=== PATIENT | female | born 1965 | race Caucasian/White ===

== ENCOUNTER → 2017-04-18 09:14 | Outpatient (CLI) | payer BC, SELFPAY ==
--- NOTE | 2017-04-18 09:17 | MM_ITS ---
MM Dig screening mamm BI w/CAD CAD Screening ORDERING PHYSICIAN : Ladan Willett PATIENT AGE: 51 years GENDER: Female COMPARISON: Previous mammograms: June 2014 & film screen mammogram July 2008. INDICATION: Routine screening. No new complaints. Family history. Noncontributory. TECHNIQUE: Standard CC and MLO images were obtained. R2 CAD reviewed. FINDINGS: Low-density breast bilaterally with generalized fatty replacement We again see the stable tiny nodular densities towards the lateral right and left breast. Most likely these reflect small stable intramammary lymph nodes and aren't not of concern. Follow-up in one year would be adequate and recommended. No architectural distortion. No suspicious calcifications. IMPRESSION: Stable bilateral mammogram with no new areas of significant concern. Follow-up in one year recommended BI-RADS Category: 1 Negative RECOMMENDED FOLLOW-UP: 1YR - 1 YEAR FOLLOW-UP (A letter has been sent to the patient regarding results of the study.) Screening
== END ==
PROVIDERS: PCP Nurse Practitioner Family; Visit Provider Nurse Practitioner Family
DX: Z12.39 Encounter for other screening for malignant neoplasm of breast (principal)
CPT/HCPCS: 77067

== ENCOUNTER → 2017-06-17 13:03 | Outpatient (POV) | payer BC, SELFPAY | PROVIDERS: PCP Nurse Practitioner Family; Visit Provider Nurse Practitioner Acute Care | DX: Z00.00 Encounter for general adult medical examination without abnormal findings (principal) ==

== ENCOUNTER → 2017-06-25 10:35 | Outpatient (CLI) | payer BC, SELFPAY ==
--- NOTE | 2017-06-25 10:39 | NM_ITS ---
NM hepatobiliary wo pharm HISTORY: Pancreatitis, right upper quadrant pain ITS.REASON: PANCREATITIS, RUQ AIN ORDERING PHYSICIAN: Venecia Sanchez PATIENT AGE: 52 years DOSE: 8.23 mCi Tc Choletec Fatty meal: Ensure Moderate pain was reported with fatty meal FINDINGS: Homogeneous activity is present within the hepatic parenchyma. Activity is present in the gallbladder by 10 minutes. Activity is present in the small bowel by 10 minutes. The gallbladder ejection fraction is calculated to be 78% Patient did report pain with the fatty meal IMPRESSION: Unremarkable hepatobiliary scan and gallbladder ejection fraction. No evidence of common or cystic duct obstruction with normal gallbladder ejection fraction
--- NOTE | 2017-06-25 10:52 | HMH.ITSHM ---
GLIPIZIDE METFORMIN METOPROLOL LIPITOR LISINOPRIL
== END ==
PROVIDERS: PCP Nurse Practitioner Family; Visit Provider Nurse Practitioner Acute Care
DX: K85.90 Acute pancreatitis without necrosis or infection, unspecified (principal)
CPT/HCPCS: 78226; A9537

== ENCOUNTER → 2017-12-27 12:48 | Outpatient (CLI) | payer BC, SELFPAY ==
--- NOTE | 2017-12-27 12:57 | MM_ITS ---
MM Dig mamm BI DX w/CAD, US breast RT complete, US breast LT complete INDICATION: Bilateral palpable abnormalities ORDERING PHYSICIAN: Laine Jung PATIENT AGE: 52 years COMPARISON: 04/18/2017, 07/08/2014 TECHNIQUE: Standard images performed along with problem-solving views and bilateral breast ultrasound FINDINGS: Right breast: Multiple benign-appearing nodular densities. No malignant appearing mass or malignant. Microcalcification. There are 2 benign-appearing nodules deep to the placed marker laterally one measuring 6 and one measuring 4 mm. These are nonsignificant changed. On the MLO spot compression view there is an asymmetric density in the upper aspect of the right breast millimeters. An additional marker is placed along the medial aspect of the right breast for which there are no mammographic abnormalities apparent Right breast ultrasound: 4 mm hypoechoic nodule at 11:00 5 mm hypoechoic nodule at 10:00, small lymph node at 10:00. At 6 x 3 mm. 4 mm mixed echo a nodule at 10:00 which may be due to small cyst. Left breast: A marker is placed in the 12:00 region of the left breast. No mammographic nodular evident at this area. Benign-appearing nodules are present on the left. No malignant appearing mass or malignant appearing microcalcification. There is a small asymmetric density in the upper aspect of the left breast at approximately 8 x 4 mm which partially effaces on spot compression view. Left breast ultrasound: Oval hypoechoic nodule at 2:00 and 8 x 3 mm corresponding to mammographic abnormality which is stable. Small nodes in the axilla. IMPRESSION: No convincing evidence of malignancy. No malignant appearing mass that would correspond to any palpable abnormalities. There are are probably benign-appearing nodular densities bilaterally as described above. Recommend bilateral 6 month mammographic and sonographic follow-up for the asymmetric density in the upper aspect of the right breast and left breast and complex hypoechoic nodules BI-RADS Category: 3 Probably Benign Finding Short Term Follow-up RECOMMENDED FOLLOW-UP: 6M - 6 MONTH FOLLOW-UP (A letter has been sent to the patient regarding results of the study.)
== END ==
PROVIDERS: PCP Nurse Practitioner Family; Visit Provider Nurse Practitioner Family
DX: N63.14 Unspecified lump in the right breast, lower inner quadrant (principal)
CPT/HCPCS: 76641; 77066

== ENCOUNTER → 2018-07-04 15:20 | Outpatient (CLI) | payer BC, SELFPAY ==
--- NOTE | 2018-07-04 15:28 | MM_ITS ---
MM Dig mamm BI DX w/CAD, US breast RT complete, US breast LT complete INDICATION: 6 month follow-up abnormal mammogram ORDERING PHYSICIAN: Laine Jung PATIENT AGE: 53 years COMPARISON: 12/27/2017, 04/18/2017 TECHNIQUE: Standard images performed with bilateral spot compression views and bilateral breast ultrasound FINDINGS: Mostly fatty replaced fibroglandular tissue bilaterally Right breast: Multiple benign-appearing nodules which are unchanged. No malignant appearing mass or malignant appearing microcalcification Right breast ultrasound: No change in the 2 small isoechoic nodules at 10:00 at 5 and 6 mm. Stable 5 mm hypoechoic nodule at 10:00. 4 mm cyst at 11:00. Small nodes in the axilla. Left breast: Benign-appearing nodules. The asymmetric density in the superior aspect of the left breast on MLO view is somewhat less apparent and at least partially effaces as before. No new nodules are evident. Left breast ultrasound: 8 x 3 mm isoechoic nodule at 2:00 unchanged. No malignant appearing mass is evident. IMPRESSION: Overall stable appearance of the breasts. No convincing evidence of malignancy. Benign findings. Suggest patient return to screening mammogram in December 2018 BI-RADS Category: 2 Benign Finding(s) RECOMMENDED FOLLOW-UP: 6M - 6 MONTH FOLLOW-UP (A letter has been sent to the patient regarding results of the study.)
== END ==
PROVIDERS: PCP Nurse Practitioner Family; Visit Provider Nurse Practitioner Family
DX: N64.9 Disorder of breast, unspecified (principal)
CPT/HCPCS: 76641; 77066

== ENCOUNTER → 2022-03-08 15:55 | Outpatient (CLI) | payer BC, SELFPAY ==
--- NOTE | 2022-03-08 15:59 | XR_ITS ---
FINAL REPORT TECHNIQUE: Chest PA & Lateral CLINICAL HISTORY: cough FINDINGS: 2 views of the chest were performed. The heart size is normal. The mediastinum is within normal limits. There is localized eventration of the right hemidiaphragm. There is no acute cardiopulmonary process. There are no pleural effusions. There is no pneumothorax. The bony thorax appears intact. IMPRESSION: No acute cardiopulmonary process. Reviewed, Interpreted and Dictated by Orlin Vasquez III, MD Transcribed by Kd Lowe Authenticated and [facility]
== END ==
PROVIDERS: PCP Family Medicine; Visit Provider Nurse Practitioner Family
DX: R05.9 Cough, unspecified (principal)
CPT/HCPCS: 71046

== ENCOUNTER 2022-04-16 14:47 | Emergency (ER) | payer BC, SELFPAY ==
[2022-04-16 15:00] VITALS: BP 181/97; PULSE 121; RESP 20; TEMP 36.6; O2SAT 98; BMI 33.0
--- NOTE | 2022-04-16 15:14 | EXP.UTC ---
Discharge Plan Disposition Patient Disposition: Still a Patient Condition: Fair Prescriptions Prescriptions: No Action multivitamin Tablet 1 tab PO DAILY aspirin 81 mg tablet,delayed release (DR/EC) 81 mg PO DAILY Referrals Follow up/Referrals: Rubens Nelson MD [Primary Care Provider] - See instructions Clinical Impressions Clinical Impression: Chest pain Discharge ED Provider: Miki Fraga [facility] [place] General Stated complaint: sore throat cough headache Time Seen by Provider: 04/16/22 15:14 History of Present Illness Provider Complaint: She states that she has been having dyspnea, tachycardia and chest pain. Her chest pain comes and goes. It is accompanied with the feeling of her heart beating very fast and harder than normal. She has had these episodes thru out the day and night and she cannot relate it to any activity that she is doing at the time. It has woke her up at night multiple times. She has been referred to cardiology for her symptoms, but her appointment is not until June. She was told that if her symptoms worsened then she should go to the er. She is here because her symptoms have been worsening. Related Data Home Medications Medication Instructions Recorded Confirmed aspirin 81 mg tablet,delayed 81 mg PO DAILY . 01/23/22 04/16/22 release multivitamin 1 tab PO DAILY . 03/08/22 04/16/22 Allergies Allergy/AdvReac Type Severity Reaction Status Date / Time oseltamivir [From Tamiflu] Allergy Rash Verified 04/16/22 15:40 ANESTHETICS,GENERAL Allergy Unknown S-SWELLS-OR Uncoded 04/04/22 11:34 AL/THROAT,D IFF.BREATHI NG APPLE Allergy Unknown Q-[id number]-HLMP/THROAT,DIFF. Uncoded 04/04/22 11:34 BREATHING BANANAS (FOOD) Allergy Unknown Z-REHSBR-CLCN/THROAT,DIFF. Uncoded 04/04/22 11:34 BREATHING CHOCOLATE Allergy Unknown M-KYLLOC-QNAH/THROAT,DIFF. Uncoded 04/04/22 11:34 BREATHING From PERCOCET Allergy Unknown S-DIFF. Uncoded 04/04/22 11:34 BREATHING,THROAT SWELLING POTATO Allergy Unknown A-VRICTU-BNSL/THROAT,DIFF Uncoded 04/04/22 11:34 BREATHING SHELLFISH Allergy Unknown Z-EWFCOY-DEGC/THROAT,DIFF. Uncoded 04/04/22 11:34 BREATHING PFSH PFSH Disclaimer: The information contained in this section may have been updated after the patient was seen, as this information can be updated by other users. Medical History Diabetes mellitus Hypertension Surgical History History of appendectomy History of dilatation and curettage History of hysterectomy History of removal of ovarian cyst Family History Father Stroke Mother Heart attack Social History Smoking Status: Never smoker alcohol intake: never substance use type: denies use current occupational status: employed Travel in the last 8 weeks: None household members: spouse housing: house current occupation: [employer] caffeine: No ROS Obtained: Yes All systems reviewed & no additional complaints except as documented Constitutional Constitutional: Denies chills and Denies fever(s) Eyes Eyes: Denies eye discharge ENT Ears, Nose, Mouth, and Throat: Denies dizziness, Denies otalgia and Denies sore throat Cardiovascular Cardiovascular: Reports as per HPI and Reports chest pain Respiratory Respiratory: Reports shortness of breath, Reports chest congestion, Reports cough, Denies stridor and Denies wheezing Gastrointestinal Gastrointestingal: Denies nausea or vomiting Musculoskeletal Musculoskeletal: Reports system reviewed and no additional complaints, except as documented and Denies arthralgias Integumentary/Breasts Skin/Breast: Denies rash Neurologic Neurologic: Denies dizziness and Denies paresthesias Allergic/Immunologic Allergic/Immu
--- NOTE | 2022-04-16 15:17 | XR_ITS ---
FINAL REPORT TECHNIQUE: Chest PA & Lateral CLINICAL HISTORY: chest congestion COMPARISON: February 2022 FINDINGS: 2 views of the chest were performed. The heart size is normal. The mediastinum is within normal limits. There are mild chronic changes in the lung bases. There is no acute cardiopulmonary process. There are no pleural effusions. There is no pneumothorax. The bony thorax appears intact. IMPRESSION: No acute cardiopulmonary process. Reviewed, Interpreted and Dictated by Rex Sandoval MD Transcribed by Kd Lowe Authenticated and [facility]
[2022-04-16 16:26] VITALS: BP 162/90; PULSE 107; RESP 19; O2SAT 98; BMI 32.9
--- NOTE | 2022-04-16 16:26 | ECG_ITS ---
APPROVED REPORT Exam: Resting ECG HR:115 bpm ECG Measurements Heart Rate 115 AXES NH 140 P 22 QRSd 85 QRS -33 QT 324 T 93 QTc 392 Conclusion SINUS TACHYCARDIA Left atrial abnormality Late R wave progression - old ABNORMAL ECG UNCONFIRMED REPORT Electronically signed by : Jim Tesfaye MD 04/17/2022 20:22:34
--- NOTE | 2022-04-16 16:42 | HMH.EDGENADL ---
Discharge Plan Disposition Patient Disposition: Home, Self-Care Condition: Fair Prescriptions Prescriptions: New benzonatate 100 mg capsule 100 mg PO TID PRN (Reason: cough) 5 Days Qty: 15 0RF albuterol sulfate 90 mcg/actuation HFA aerosol inhaler 2 inh inhalation Q6H PRN (Reason: shortness of breath or wheezing) 5 Days Qty: 8.5 0RF No Action multivitamin Tablet 1 tab PO DAILY aspirin 81 mg tablet,delayed release (DR/EC) 81 mg PO DAILY Referrals Follow up/Referrals: Rubens Nelson MD [Primary Care Provider] - See instructions Activity Restrictions/Add. Instructions Additional Instructions/Restrictions: Your symptoms today are consistent with an acute viral syndrome namely bronchitis. It is normal for a cough to persist for several weeks in this condition. Your chest x-ray was normal no evidence of any focal pneumonia. Therefore you do not need any antibiotics at this point. The remainder of your work-up was normal. You are negative for the flu and COVID. You have been given several symptomatic medications to treat you supportively while your body fights off this viral infection. If you have increasing shortness of breath or other symptoms you may return to the emergency department. No evidence of any cardiopulmonary emergency today during her visit. Clinical Impressions Clinical Impression: Acute viral syndrome, Bronchitis Discharge ED Provider: Miki Fraga Adult HPI General Chief complaint: Shortness of Breath/Dyspnea Stated complaint: sore throat cough headache Time Seen by Provider: 04/16/22 15:14 Mode of Arrival: Ambulatory Source of Information: Patient Limitations: No Limitations Description of Symptoms (Recalled from ER Triage Doc. by RN): Had covdid Feb 24, an ever since has had worsening cough. History of Present Illness HPI narrative: Patient is a 56-year-old female presenting with multiple complaints. States that she has had intermittent viral type syndromes over the last few months including most recently in February where she had confirmed COVID. Last week many people from her work came down with a viral syndromes many of whom got tested for COVID and were negative. She subsequently became sick as well with the same symptoms that people at her work. She states that she has had some body aches some cough some dyspnea and feeling like her heart is beating out of her chest. She states that her pain is largely positional in nature with some mild improvement with leaning forward it is not pleuritic in nature. It is not exertional. She does state that she is dyspneic little bit out of proportion to the viral syndrome she has had in the past Denies any history of heart or lung problems. Related Data Home Medications Medication Instructions Recorded Confirmed aspirin 81 mg tablet,delayed 81 mg PO DAILY . 01/23/22 04/16/22 release multivitamin 1 tab PO DAILY . 03/08/22 04/16/22 Previous Rx's Medication Instructions Recorded albuterol sulfate 90 mcg/actuation 2 inh inhalation Q6H PRN shortness 04/16/22 aerosol inhaler of breath or wheezing 5 days #8.5 grams benzonatate 100 mg capsule 100 mg PO TID PRN cough 5 days #15 04/16/22 caps Allergies Allergy/AdvReac Type Severity Reaction Status Date / Time oseltamivir [From Tamiflu] Allergy Rash Verified 04/16/22 15:40 ANESTHETICS,GENERAL Allergy Unknown S-SWELLS-OR Uncoded 04/04/22 11:34 AL/THROAT,D IFF.BREATHI NG APPLE Allergy Unknown X-ETDAOZ-VSAZ/THROAT,DIFF. Uncoded 04/04/22 11:34 BREATHING BANANAS (FOOD) Allergy Unknown E-EWULZM-RTHK/THROAT,DIFF. Uncoded 04/04/22 11:34 BREATHING CHOCOLATE Allergy Unknown N-TLTFAH-OOIW/THROAT,DIFF. Uncoded 04/04/22 11:34 BREATHING From PERCOCET Allergy Unknown S-DIFF. Uncoded 04/04/22 11:34 BREATHING,THROAT SWELLING POTATO Allergy Unknown L-IXOOVI-EIAH/THROAT,DIFF Uncoded 04/04/22 11:34 BREATHING SHELLFISH Allergy Un
[2022-04-16 16:56] LABS: Adenovirus,PCR Not Detected (NotDetected); Basophils # 0.2 K/mm3 (0-0.2); Bordetella Pertussis Not Detected (NotDetected); Chlamydophila Pneumoniae, PCR Not Detected (NotDetected); Coronavirus 19, PCR Not Detected (NotDetected); Coronavirus 229E Not Detected (NotDetected); Coronavirus NL63 Not Detected (NotDetected); Coronavirus OC43 Not Detected (NotDetected); Coronovirus HKU1,PCR Not Detected (NotDetected); Eosinophils # 0.2 K/mm3 (0.0-0.4); Eosinophils % 1.7 % (0.1-12.0); Hematocrit 50.3 % (37.0-47.0); Hemoglobin 16.3 g/dL (12.2-16.2); Human Metapneumovirus Not Detected (NotDetected); Influenza A, PCR Not Detected (NotDetected); Influenza AH1, 2009 Not Detected (NotDetected); Influenza AH1, PCR Not Detected (NotDetected); Influenza AH3,PCR Not Detected (NotDetected); Influenza B, PCR Not Detected (NotDetected); Lymphocytes # 2.8 K/mm3 (0.7-4.5); Lymphocytes % 31.7 % (10-50); Mean Corpuscular HGB Conc 32.4 g/dL (31.8-35.4); Mean Corpuscular Hemoglobin 31.6 pg (27.0-31.2); Mean Corpuscular Volume 97.6 fl (81-99); Mean Platelet Volume 10.1 fl (7.4-10.4); Monocytes # 0.3 K/mm3 (0.1-1.0); Monocytes % 3.4 % (1.7-9.3); Mycoplasma Pneumoniae, PCR Not Detected (NotDetected); Neutrophils # 5.4 K/mm3 (1.8-7.8); Neutrophils % 61.2 % (37.0-80.0); Parainfluenza 1, PCR Not Detected (NotDetected); Parainfluenza 2, PCR Not Detected (NotDetected); Parainfluenza 3, PCR Not Detected (NotDetected); Parainfluenza 4, PCR Not Detected (NotDetected); Platelet Count 278 K/mm3 (142-424); Red Blood Count 5.15 M/mm3 (4.20-5.40); Respiratory Syncytial Virus Not Detected (NotDetected); Rhinovirus/Enterovirus Not Detected (NotDetected); White Blood Count 8.8 K/mm3 (4.8-10.8)
[2022-04-16 17:11] LABS: Chloride 101 mmol/L (98-107); Potassium 4.3 mmoL/L (3.5-5.1); Sodium 138 mmol/L (136-145)
--- NOTE | 2022-04-16 17:11 | PC.NURSE ---
respiratory called for breathing treatment
[2022-04-16 17:13] LABS: Blood Urea Nitrogen 14 mg/dl (7-17); Creatinine Clearance Estimated 182 mL/min (50-200); Estimated Glomerular Filt Rate 129 ml/min (>60); GFR (African American) 156 ML/MIN (>60)
[2022-04-16 17:14] LABS: Alanine Aminotransferase 33 U/L (12-78); Albumin Level 4.9 g/dl (3.5-5.0); Albumin/Globulin Ratio 1.4 (1.1-1.8); Alkaline Phosphatase 101 U/L (38-126); Anion Gap 17.3 mEq/L (5-15); Aspartate Amino Transferase 28 U/L (14-36); Bilirubin,Total 0.7 mg/dl (0.2-1.3); Calcium 9.3 mg/dl (8.4-10.2); Carbon Dioxide 24 mmol/L (22.0-30.0); Globulin 3.4 g/dL (1.3-3.2); Glucose 379 mg/dl (74-100); Total Protein,Serum 8.3 g/dl (6.3-8.2)
[2022-04-16 17:23] LABS: NT Pro Brain Natriuretic Pep. 96.6 pg/mL (0-125)
[2022-04-16 17:24] LABS: Coronavirus 19, PCR Not Detected (NotDetected); Influenza A, PCR Not Detected (NotDetected); Influenza B, PCR Not Detected (NotDetected)
[2022-04-16 17:27] LABS: Troponin I < 0.01 ng/ml (0.00-0.034)
[2022-04-16 17:35] VITALS: PULSE 103; PULSE 104
[2022-04-16 18:18] LABS: Appearance,Urine CLEAR (Clear); Blood, Urine Negative (Negative); Color,Urine YELLOW (Yellow); Glucose,Urine (UA) 2+ (Negative); Ketones,Urine 3+ (Negative); Leukocyte Esterase,Urine Negative (Negative); Microscopic, Urine URINE MICROSCOPIC (MICROSCOPIC); Nitrate,Urine Negative (Negative); PH,Urine 5.5 (5.0-8.5); Protein,Urine TRACE (Negative); Specific Gravity, Urine >= 1.030 (1.005-1.030); Urobilinogen,Urine 0.2 EU/dl (0.2)
[2022-04-16 18:21] LABS: Bilirubin,Urine Negative (Negative)
[2022-04-16 18:40] LABS: RBC,Urine Occasional #/hpf (0-3)
[2022-04-16 18:56] VITALS: BP 148/89; PULSE 94; RESP 18; TEMP 36.6
== END 2022-04-16 18:58 | disposition home or self-care (01) ==
LOC: UTC 16:23 → ER 16:23
PROVIDERS: Emergency Provider Student in an Organized Health Care Education/Training Program; PCP Family Medicine
DX: B34.9 Viral infection, unspecified (principal); J20.9 Acute bronchitis, unspecified; Z86.16 Personal history of COVID-19; E11.9 Type 2 diabetes mellitus without complications; I10 Essential (primary) hypertension; Z90.49 Acquired absence of other specified parts of digestive tract; Z90.710 Acquired absence of both cervix and uterus; Z90.721 Acquired absence of ovaries, unilateral; Z82.49 Family history of ischemic heart disease and other diseases of the circulatory system; Z20.822 Contact with and (suspected) exposure to COVID-19
CPT/HCPCS: 71046; 80053; 81001; 83880; 84484; 85025; 87581; 87632; 87798; 93005; 96361; 96374; 99285; C9803; U0003; U0005

== ENCOUNTER → 2022-04-23 23:28 | Outpatient (CLI) | payer BC, SELFPAY ==
[2022-04-23 17:18] LABS: Hemoglobin A1C > 14.0 % (4.0-6.0)
[2022-04-23 17:31] LABS: Chol/HDL Ratio 6.4 (1-3.5); Cholesterol 218 mg/dl (140-200); HDL Cholesterol 34 mg/dl (40-60); Triglycerides 181 mg/dl (30-150); VLDL Cholesterol 36 mg/dL (0-40)
[2022-04-23 17:43] LABS: Direct LDL Cholesterol 163.88 mg/dL (100-129)
[2022-04-23 17:48] LABS: T4 (Thyroxine) 10.5 ug/dl (5.53-11.0)
[2022-04-23 18:01] LABS: Thyroid Stimulating Hormone 2.55 uIU/mL (0.465-4.68)
== END ==
PROVIDERS: PCP Family Medicine; Visit Provider Family Medicine
DX: E04.1 Nontoxic single thyroid nodule (principal); R73.9 Hyperglycemia, unspecified
CPT/HCPCS: 80061; 83036; 84436; 84443